=== PATIENT | male | born 1970 ===

== ENCOUNTER → 2022-12-14 | Outpatient (CLI) | payer BC ==
[2022-12-15 07:11] LABS: Stool Occult Bld Immuno 1 Negative (NEGATIVE)
== END | disposition home or self-care (01) ==
LOC: EDSTATUS 07:33 → LAB SHORT 10:20 → LAB 10:20
PROVIDERS: Physician Assistant
DX: Z12.11 Encounter for screening for malignant neoplasm of colon (principal)
CPT/HCPCS: G0328